=== PATIENT | female | born 1955 | race Caucasian/White ===

== ENCOUNTER 2018-06-25 07:43 | Inpatient (IN) | payer OTHER ==
[2018-06-25] MEDS: SOD CHLORIDE 0.9% 1,000 ML IV ×2 (07:00→20:11)
[2018-06-25] MEDS: CEFAZOLIN 2 GM/50 ML (PMX) 50 ML IVPB (07:00)
[~2018-06-25 07:43] MED LIST: LIDOCAINE 2% (SDV) 5 ML INJ
[2018-06-25] MEDS ORDERED: PROPOFOL 100 ML (15:03)
[2018-06-25] MEDS ORDERED: ROCURONIUM 50 MG INJ (15:04)
[2018-06-25] MEDS ORDERED: CEFAZOLIN 1 GM INJ (15:25)
[2018-06-25] MEDS: ISOSULFAN BLUE 1% 5 ML INJ SC (15:50)
[2018-06-25] MEDS ORDERED: NEOSTIGMINE 3 MG/3 ML SYRINGE (16:40)
[2018-06-25] MEDS ORDERED: GLYCOPYRROLATE 0.4 MG INJ (16:40)
[2018-06-25] MEDS ORDERED: hydrALAzine 20 MG INJ IV (17:00)
[2018-06-25] MEDS ORDERED: EPHEDrine SULFATE 50 MG/5 ML SYG IV (17:00)
[2018-06-25] MEDS ORDERED: DIPHENHYDRAMINE 50 MG INJ IV (17:00)
[2018-06-25] MEDS ORDERED: MEPERIDINE 25 MG INJ IV (17:00)
[2018-06-25] MEDS ORDERED: ALBUTEROL 0.083% (NEB) 2.5 MG/3 ML AMP HHN (17:00)
[2018-06-25] MEDS ORDERED: OXYCODONE/ACETAMINOPHEN (5/325) TAB PO ×2 (17:00)
[2018-06-25] MEDS ORDERED: HYDROmorphONE 1 MG/5 ML IV SYRINGE IV ×3 (17:00)
[2018-06-25] MEDS ORDERED: morphine 2 MG INJ IV (17:00)
[2018-06-25] MEDS ORDERED: ONDANSETRON 4 MG INJ IV ×2 (17:00)
[2018-06-25] MEDS ORDERED: METOCLOPRAMIDE 10 MG INJ IV (17:00)
[2018-06-25] MEDS ORDERED: FENTAnyl 50 MCG/ML VIAL IV ×3 (17:00)
[2018-06-25] MEDS ORDERED: MIDAZOLAM 1 MG/ML 2 ML INJ IV (17:00)
[2018-06-25] MEDS ORDERED: LABETALOL HCL 20MG INJ IV (17:00)
[2018-06-25] MEDS ORDERED: ACETAMINOPHEN 1000MG/100ML IV 100 ML IVPB (17:00)
[2018-06-25] MEDS: D5W-0.45 NACL + KCL 20 MEQ 1,000 ML IV (19:09)
[2018-06-26] MEDS: D5W-0.45 NACL + KCL 20 MEQ 1,000 ML IV ×2 (00:49→04:03)
[2018-06-26 10:58] LABS: ADD MAN DIFF? NO
[2018-06-26 11:00] LABS: BASOPHILS % 0.6 % (0.0-2.0); EOSINOPHILS # 0.1 10^3/ul (0.0-0.5); EOSINOPHILS % 1.3 % (0.0-7.0); HEMATOCRIT 33.9 % (37.0-47.0); HEMOGLOBIN 10.8 g/dl (12.0-16.0); LYMPHOCYTES # 1.5 10^3/ul (0.8-2.9); LYMPHOCYTES % 28.6 % (15.0-51.0); MEAN CORPUSCULAR HEMOGLOBIN 28.6 pg (29.0-33.0); MEAN CORPUSCULAR HGB CONC 31.9 g/dl (32.0-37.0); MEAN CORPUSCULAR VOLUME 89.7 fl (82.0-101.0); MEAN PLATELET VOLUME 8.3 fl (7.4-10.4); MONOCYTE # 0.4 10^3/ul (0.3-0.9); MONOCYTES % 7.2 % (0.0-11.0); NEUTROPHIL # 3.3 10^3/ul (1.6-7.5); NEUTROPHILS % 61.9 % (39.0-77.0); PLATELET COUNT 268 10^3/UL (140-415); RED BLOOD COUNT 3.78 10^6/ul (4.20-5.40); RED CELL DISTRIBUTION WIDTH 15.7 % (11.5-14.5)
[2018-06-26 11:00] LABS: WHITE BLOOD COUNT 5.3 10^3/ul (4.8-10.8)
[2018-06-26 11:27] LABS: ANION GAP 5 (5-13); BLOOD UREA NITROGEN 5 mg/dl (7-20); CALCIUM 9.1 mg/dl (8.4-10.2); CARBON DIOXIDE 27 mmol/L (21-31); CHLORIDE 104 mmol/L (97-110); Estimated GFR > 60 mL/min (>60); GLUCOSE 163 mg/dl (70-220); POTASSIUM 4.4 mmol/L (3.5-5.1); SODIUM 136 mmol/L (135-144)
[2018-06-26] MEDS: SOD CHLORIDE 0.9% 1,000 ML IV (12:02)
== END 2018-06-26 16:30 | disposition home or self-care (01) | DRG 581 ==
LOC: SDS 07:43 → REC 16:51 → MS1 18:57
PROC: 0HBU0ZZ Excision of Left Breast, Open Approach (ICD-10-PCS; principal; 2018-06-25 15:09)
PROC: 07B60ZX Excision of Left Axillary Lymphatic, Open Approach, Diagnostic (ICD-10-PCS; 2018-06-25 15:09)
DX: C50.912 Malignant neoplasm of unspecified site of left female breast (principal); G89.18 Other acute postprocedural pain; Z17.1 Estrogen receptor negative status [ER-]; R07.89 Other chest pain
CPT/HCPCS: 71045; 80048; 85025; 88307; 88331; 93005